=== PATIENT | female | born 1950 | race Caucasian/White ===

== ENCOUNTER 2017-08-18 12:13 | Inpatient (IN) | payer OTHER, MEDICAID ==
[~2017-08-18] VITALS: Ht 154.9 cm; Wt 43.2 kg
[2017-08-18 15:06] VITALS: Ht 154.9 cm; Wt 43.2 kg
[2017-08-18] MEDS ORDERED: SEROQUEL XR50 MG (16:33)
[2017-08-18] MEDS ORDERED: BENZTROPINE ME0.5 MG PO (16:33)
[2017-08-18] MEDS ORDERED: PHE30 (16:34)
[2017-08-18] MEDS ORDERED: RES30 PO (16:34)
[2017-08-18] MEDS ORDERED: FLUOXETINE20 M3 PO (16:34)
[2017-08-18] MEDS ORDERED: COLACE100 MG PO (16:35)
[2017-08-18] MEDS ORDERED: MULTIVITAMIN1 SGL PO (16:35)
[2017-08-18] MEDS ORDERED: VITAMIN D400 UNIT PO (16:35)
[2017-08-18] MEDS ORDERED: KEPPRA500 MG PO (16:35)
[2017-08-18] MEDS ORDERED: FIBER LAX625 MG PO (16:35)
[2017-08-18] MEDS ORDERED: GOOD NEIGHBOR PH5 MG PO (16:36)
[2017-08-18] MEDS ORDERED: IBUPROFEN400 MG PO (16:36)
[2017-08-18] MEDS ORDERED: DIASTAT ACUDIAL20 MG MR (16:36)
[2017-08-18] MEDS ORDERED: LEVETIRACETAM1000 M1 PO (16:36)
[2017-08-18] MEDS ORDERED: MIRALAX17 GM/Dose PO (16:36)
[2017-08-18] MEDS ORDERED: TYLENOL WITH CO1 TA2 PO (16:37)
[2017-08-18 16:56] LABS: BASOPHIL % 0.2 % (0-2); PLATELET COUNT 178 x10^3mcL (130-400); RED CELL DISTRIBUTION WIDTH 12.3 % (11.5-14.5)
[2017-08-18 17:00] LABS: CALCIUM 8.7 mg/dL (8.5-10.1); CARBON DIOXIDE 23.6 mmol/L (21-32); CHLORIDE SERUM 100 mmol/L (98-107); CREATININE SERUM 0.7 mg/dL (0.6-1.0); GFR1 > 60 mL/min; GLUCOSE SERUM 145 mg/dL (74-106); POTASSIUM SERUM 3.7 mmol/L (3.5-5.1); SODIUM SERUM 135 mmol/L (136-145)
[2017-08-18 17:12] LABS: ALBUMIN 3.8 g/dL (3.4-5.0); ALKALINE PHOSPHATASE 114 U/L (46-116); ALT/SGPT 23 U/L (14-59); AST/SGOT 30 U/L (15-37); BILIRUBIN TOTAL 0.71 mg/dL (0.20-1.00); CHOLESTEROL 153 mg/dL (<200); HDL CHOLESTEROL 82 mg/dL (40-60); MAGNESIUM 1.9 mg/dL (1.8-2.4); T4(THYROXINE) 7.5 ug/dL (4.7-13.3); TOTAL PROTEIN, SERUM 7.3 g/dL (6.4-8.2)
[2017-08-18 18:32] VITALS: BP 125/91
[2017-08-18 20:44] LABS: PHOSPHOROUS 3.8 mg/dL (2.5-4.9); T3 TOTAL 0.74 ng/mL
[2017-08-18 20:45] LABS: CHOLESTEROL/HDL RATIO 1.9
[2017-08-18 21:16] VITALS: BP 109/57
[2017-08-18 21:44] LABS: FREE T4 1.12 ng/dL (0.76-1.46); FREE THYROXINE INDEX 2.6 ug/dL (1.4-4.5); T4(THYROXINE) 7.4 ug/dL (4.7-13.3)
[2017-08-19 05:57] VITALS: BP 109/65
[2017-08-19 06:03] VITALS: BP 109/65
[2017-08-19 08:24] LABS: CALCIUM 8.7 mg/dL (8.5-10.1); CARBON DIOXIDE 25.2 mmol/L (21-32); CHLORIDE SERUM 102 mmol/L (98-107); CREATININE SERUM 0.5 mg/dL (0.6-1.0); GFR1 > 60 mL/min; GLUCOSE SERUM 112 mg/dL (74-106); POTASSIUM SERUM 3.7 mmol/L (3.5-5.1); SODIUM SERUM 137 mmol/L (136-145)
[2017-08-19 08:37] LABS: BASOPHIL % 0.1 % (0-2); PLATELET COUNT 138 x10^3mcL (130-400); RED CELL DISTRIBUTION WIDTH 12.5 % (11.5-14.5)
[2017-08-19 09:39] VITALS: BP 108/63
[2017-08-19 17:47] VITALS: BP 99/56
[2017-08-19 21:34] VITALS: BP 101/47
[2017-08-20 07:46] LABS: BASOPHIL % 0.1 % (0-2); PLATELET COUNT 104 x10^3mcL (130-400); RED CELL DISTRIBUTION WIDTH 12.6 % (11.5-14.5)
[2017-08-20 08:08] LABS: CALCIUM 8.1 mg/dL (8.5-10.1); CARBON DIOXIDE 26.8 mmol/L (21-32); CHLORIDE SERUM 107 mmol/L (98-107); CREATININE SERUM 0.4 mg/dL (0.6-1.0); GFR1 > 60 mL/min; GLUCOSE SERUM 119 mg/dL (74-106); MAGNESIUM 1.9 mg/dL (1.8-2.4); PHOSPHOROUS 2.2 mg/dL (2.5-4.9); POTASSIUM SERUM 3.6 mmol/L (3.5-5.1); SODIUM SERUM 142 mmol/L (136-145)
[2017-08-20 10:39] VITALS: BP 104/61
[2017-08-20 17:42] VITALS: BP 101/52
[2017-08-20 23:38] VITALS: BP 106/58
[2017-08-21 05:56] VITALS: BP 118/61
[2017-08-21 06:23] LABS: BASOPHIL % 0.2 % (0-2); RED CELL DISTRIBUTION WIDTH 13.1 % (11.5-14.5)
[2017-08-21 06:33] LABS: PLATELET COUNT 99 x10^3mcL (130-400)
[2017-08-21 06:52] LABS: CALCIUM 7.8 mg/dL (8.5-10.1); CARBON DIOXIDE 23.8 mmol/L (21-32); CHLORIDE SERUM 110 mmol/L (98-107); CREATININE SERUM 0.5 mg/dL (0.6-1.0); GFR1 > 60 mL/min; GLUCOSE SERUM 97 mg/dL (74-106); MAGNESIUM 1.9 mg/dL (1.8-2.4); PHOSPHOROUS 2.9 mg/dL (2.5-4.9); POTASSIUM SERUM 3.5 mmol/L (3.5-5.1); SODIUM SERUM 145 mmol/L (136-145)
[2017-08-21 08:26] LABS: rbc morphology (normal/abnorm) NORMAL (NORMAL)
[2017-08-21 09:45] VITALS: BP 96/59
[2017-08-21 17:10] VITALS: BP 96/51
[2017-08-21 21:10] VITALS: BP 119/95
[2017-08-22 05:45] VITALS: BP 110/55
[2017-08-22 07:37] LABS: CALCIUM 7.8 mg/dL (8.5-10.1); CARBON DIOXIDE 25.5 mmol/L (21-32); CHLORIDE SERUM 111 mmol/L (98-107); CREATININE SERUM 0.6 mg/dL (0.6-1.0); GFR1 > 60 mL/min; GLUCOSE SERUM 91 mg/dL (74-106); MAGNESIUM 1.7 mg/dL (1.8-2.4); PHOSPHOROUS 3.2 mg/dL (2.5-4.9); POTASSIUM SERUM 3.9 mmol/L (3.5-5.1); SODIUM SERUM 146 mmol/L (136-145)
[2017-08-22 08:19] LABS: BASOPHIL % 0.2 % (0-2); RED CELL DISTRIBUTION WIDTH 13.1 % (11.5-14.5)
[2017-08-22 08:20] LABS: PLATELET COUNT 114 x10^3mcL (130-400)
[2017-08-22 08:25] LABS: rbc morphology (normal/abnorm) ABNORMAL (NORMAL)
[2017-08-22 09:39] VITALS: BP 106/62
[2017-08-22 16:38] VITALS: BP 114/56
[2017-08-22 22:04] VITALS: BP 112/52
[2017-08-23 05:45] VITALS: BP 110/81
[2017-08-23 06:59] LABS: CALCIUM 7.8 mg/dL (8.5-10.1); CARBON DIOXIDE 23.7 mmol/L (21-32); CHLORIDE SERUM 109 mmol/L (98-107); CREATININE SERUM 0.5 mg/dL (0.6-1.0); GFR1 > 60 mL/min; GLUCOSE SERUM 89 mg/dL (74-106); MAGNESIUM 1.7 mg/dL (1.8-2.4); PHOSPHOROUS 3.4 mg/dL (2.5-4.9); POTASSIUM SERUM 3.9 mmol/L (3.5-5.1); SODIUM SERUM 142 mmol/L (136-145)
[2017-08-23 07:32] LABS: BASOPHIL % 0.2 % (0-2); PLATELET COUNT 139 x10^3mcL (130-400); RED CELL DISTRIBUTION WIDTH 13.3 % (11.5-14.5)
[2017-08-23 09:13] VITALS: BP 123/73
[2017-08-23 11:18] VITALS: BP 123/73
== END 2017-08-23 14:21 | DRG 480 ==
LOC: ED 12:13 → DU 16:29 → MU 16:29 → DU 17:55 → MU 08-19 22:03
PROVIDERS: Emergency Medicine; Family Medicine; Family Medicine Sports Medicine; Neuromusculoskeletal Medicine, Sports Medicine
PROC: 0QSB04Z Reposition Right Lower Femur with Internal Fixation Device, Open Approach (ICD-10-PCS; principal; 2017-08-19 13:00)
DX: S72.451A Displaced supracondylar fracture without intracondylar extension of lower end of right femur, initial encounter for closed fracture (principal); N17.0 Acute kidney failure with tubular necrosis; J69.0 Pneumonitis due to inhalation of food and vomit; F73 Profound intellectual disabilities; E87.1 Hypo-osmolality and hyponatremia; Z68.1 Body mass index [BMI] 19.9 or less, adult; G82.20 Paraplegia, unspecified; G40.909 Epilepsy, unspecified, not intractable, without status epilepticus; F63.9 Impulse disorder, unspecified; E86.0 Dehydration; E83.39 Other disorders of phosphorus metabolism; D64.9 Anemia, unspecified; I35.1 Nonrheumatic aortic (valve) insufficiency; I34.0 Nonrheumatic mitral (valve) insufficiency; I36.1 Nonrheumatic tricuspid (valve) insufficiency; K22.4 Dyskinesia of esophagus; F41.8 Other specified anxiety disorders; Z74.01 Bed confinement status; Z99.3 Dependence on wheelchair; X58.XXXA Exposure to other specified factors, initial encounter; Y93.89 Activity, other specified; Y92.048 Other place in boarding-house as the place of occurrence of the external cause
CPT/HCPCS: 76001; 83880; 84439; 92610-GN; C1713; J1170; J1644; J1885; J1953; J1956; J2704; J3010; J3490; J7030; J7120; Q0092